=== PATIENT | female | born 1965 | race Caucasian/White ===

== ENCOUNTER → 2020-12-19 | Outpatient (CLI) | payer OTHER ==
[2020-12-19 09:51] LABS: BUN/CREATININE RATIO 21 (0-10)
[2020-12-20 09:15] LABS: CREATININE, URINE 150.3 mg/dL (Not Estab.)
== END ==
LOC: LAB 08:53
PROVIDERS: Internal Medicine Endocrinology, Diabetes & Metabolism
DX: E78.5 Hyperlipidemia, unspecified (principal)
CPT/HCPCS: 36415; 80053; 80061; 82043; 82570; 84439; 84443

== ENCOUNTER → 2021-10-26 | Outpatient (CLI) | payer OTHER | LOC: SLEEP-COR 10:09 | DX: G47.33 Obstructive sleep apnea (adult) (pediatric) (principal) | CPT/HCPCS: 95810 ==